=== PATIENT | male | born 1955 | race Caucasian/White ===

== ENCOUNTER 2020-07-14 05:51 | Day surgery (SDC) | payer MEDICARE, OTHER ==
[2020-07-14] MEDS ORDERED: Midazolam 1 MG/ML 2 ML SDV IV ONE ×3 (05:52→07:11)
[2020-07-14] MEDS ORDERED: fentaNYL 100 MCG/2 ML SDV IV ONE ×3 (05:52→07:10)
[2020-07-14] MEDS ORDERED: fentaNYL 100 MCG/2 ML SDV ONE (06:11)
[2020-07-14] MEDS ORDERED: Midazolam 1 MG/ML 2 ML SDV ONE (06:11)
[2020-07-14] MEDS ORDERED: Dextrose 5%-0.45% NaCl 1,000 ML IV SCH (06:30)
[2020-07-14 10:13] VITALS: BP 145/64; PULSE 64
--- NOTE | 2020-07-14 12:09 | OR ---
DATE: 07/14/2020 PROCEDURES: Esophagogastroduodenoscopy and multiple pinch biopsies. INSTRUMENT USED: GIF-HQ190 Olympus video panendoscope. PREMEDICATIONS: No oral or topical anesthesia used. Fentanyl 100 mcg intravenous, Versed 2 mg intravenous, nasal O2 cannula. The procedure was done under pulse oximetry, BP recording, and traffic monitor specialist. INDICATION: The patient with longstanding difficulties of heartburn, on high- dose PPI with recent increasing shortness of breath, regurgitation, and some dysphagia for solids. Esophagogastroduodenoscopy is performed for detection of any active erosive lesions, Alexander esophagus and/or malignancy also under consideration, H pylori status to be determined, small bowel biopsies to be obtained if indicated, esophageal dilatations if needed. Endoscopic hemostasis therapy if needed. PROCEDURE IN DETAIL: The scope was passed with ease. Adequate visualization of the esophagus was made from proximal to distal areas. No upper esophageal lesions identified. Non constricting Schatzki ring was noted. No uphill or downhill esophageal varices. No Tianna-Still tear. No evidence of erosive esophagitis by Archbold criteria. No esophageal polyp or tumor mass identified. Z-line was seen at around 40 cm distal to the oral verge. No proximal gastric varices noted. Gastric fundus examination by retroflexion showed no polypoid lesions. No gastric ulcer, malignant mass, or vascular ectasia identified. Duodenal bulb showed no ulcer. Visualized second part of the duodenum was unremarkable. Multiple pinch biopsies were taken, 4 in number, from different areas to the second part of the duodenum and tissues were also obtained from the duodenal bulb at 9 and 12 o'clock positions and sent for any histopathologic evidence of celiac disease. Multiple pinch biopsies were also obtained from the gastric antrum and proximal body and sent for PyloriTek test for H pylori and histopathology. No bleeding was noted from any of the visualized areas at the completion of examination. Photographs were taken of the duodenal bulb, gastric antrum, fundus, and distal esophagus. IMPRESSION: Non constricting Schatzki ring. The patient tolerated the procedure well. [facility] /[id number]
--- NOTE | 2020-07-14 12:17 | OR ---
DATE: 07/14/2020 PROCEDURE DONE: Esophageal dilatation. INSTRUMENT USED: Barrientos bougie dilator Beninese size 48. PREMEDICATIONS: Done after esophagogastroduodenoscopy. INDICATION: The patient with dysphagia and long-standing heartburn. PROCEDURE IN DETAIL: Esophageal dilatation was done with ease using Beninese dilator size 48. No blood was noted at dilated tip after completion. IMPRESSION: Non constricting Schatzki ring. The patient tolerated the procedure well. [facility] /[id number]
== END 2020-07-14 09:29 | disposition home or self-care (01) ==
LOC: DL.ENDO 05:51
PROVIDERS: ATTEND Internal Medicine Gastroenterology
DX: K29.80 Duodenitis without bleeding (principal); K31.89 Other diseases of stomach and duodenum; I78.1 Nevus, non-neoplastic; K22.8 Other specified diseases of esophagus; K43.9 Ventral hernia without obstruction or gangrene; E83.119 Hemochromatosis, unspecified; I10 Essential (primary) hypertension; E11.9 Type 2 diabetes mellitus without complications; E66.09 Other obesity due to excess calories; Z68.34 Body mass index [BMI] 34.0-34.9, adult; Z88.8 Allergy status to other drugs, medicaments and biological substances
CPT/HCPCS: 87077; 88305; 88342; J2250; J3010; J7042

== ENCOUNTER 2021-07-13 21:02 | Emergency (ER) | payer MEDICARE, OTHER ==
[2021-07-13 21:32] VITALS: BP 154/87; PULSE 66
== END 2021-07-13 22:40 | disposition home or self-care (01) ==
LOC: DL.ED 21:02
DX: R31.9 Hematuria, unspecified (principal); I10 Essential (primary) hypertension; E11.9 Type 2 diabetes mellitus without complications; E66.9 Obesity, unspecified; Z68.32 Body mass index [BMI] 32.0-32.9, adult; Z79.899 Other long term (current) drug therapy; Z79.82 Long term (current) use of aspirin; Z91.048 Other nonmedicinal substance allergy status; Z91.09 Other allergy status, other than to drugs and biological substances
CPT/HCPCS: 81003; 99282; 99283

== ENCOUNTER 2022-08-05 06:45 | Day surgery (SDC) | payer MEDICARE, OTHER ==
[~2022-08-05 06:45] MED LIST: Dextrose 5%-0.45% NaCl 1,000 ML IV SCH
[2022-08-05 09:10] VITALS: BP 156/69; PULSE 66
== END 2022-08-05 09:05 | disposition home or self-care (01) ==
LOC: DL.ENDO 06:45
PROVIDERS: ATTEND Internal Medicine Gastroenterology
DX: K21.00 Gastro-esophageal reflux disease with esophagitis, without bleeding (principal); K22.2 Esophageal obstruction; K31.7 Polyp of stomach and duodenum; E11.9 Type 2 diabetes mellitus without complications; I10 Essential (primary) hypertension; E83.119 Hemochromatosis, unspecified; E66.9 Obesity, unspecified; E66.09 Other obesity due to excess calories; Z88.8 Allergy status to other drugs, medicaments and biological substances; Z68.34 Body mass index [BMI] 34.0-34.9, adult
CPT/HCPCS: 00731; 43239; J7042

== ENCOUNTER 2024-07-23 06:40 | Day surgery (SDC) | payer MEDICARE, OTHER ==
[~2024-07-23 06:40] MED LIST changes: -Dextrose 5%-0.45% NaCl 1,000 ML IV SCH; +Propofol 200 MG/20 ML SDV ONE
[2024-07-23] MEDS ORDERED: Lidocaine 2% 20 ML MDV NERVRT ONE (06:41)
[2024-07-23] MEDS ORDERED: Propofol 200 MG/20 ML SDV IV ONE (06:41)
[2024-07-23] MEDS ORDERED: Lactated Ringers 1,000 ML IV ONE (06:41)
[2024-07-23] MEDS ORDERED: Lactated Ringers 1,000 ML IV SCH (07:00)
[2024-07-23 09:42] VITALS: BP 122/64; PULSE 70
== END 2024-07-23 09:50 | disposition home or self-care (01) ==
LOC: DL.ENDO 06:40
PROVIDERS: ATTEND Internal Medicine Gastroenterology
DX: K64.4 Residual hemorrhoidal skin tags (principal); I10 Essential (primary) hypertension; E11.9 Type 2 diabetes mellitus without complications; Z86.0100 Personal history of colon polyps, unspecified
CPT/HCPCS: 45378; J2003; J2704; J7120